=== PATIENT | male | born 1965 | race Caucasian/White ===

== ENCOUNTER 2023-09-17 10:29 | Emergency (ER) | payer OTHER, SELFPAY ==
[2023-09-17] VITALS (16 sets, daily range): BP systolic 142–159; BP diastolic 81–91; PULSE 62–77; RESP 12–16; TEMP 36.6–37.3; O2SAT 94–99; BMI 25.4
[2023-09-17 10:51] LABS: Appearance Urine Clear (Clear); Bilirubin Urine Negative (Negative); Blood Urine Trace-intact (Negative); Color Urine Yellow (Yellow); Glucose Urine Negative (Negative); Ketones Urine Negative (Negative); Leukocyte Esterase Urine Negative (Negative); Nitrite Urine Negative (Negative); Protein Urine Negative (Negative); Specific Gravity Urine 1.015 (1.000-1.030); Urobilinogen Urine 0.2 (0.2-1.0)
[2023-09-17 11:01] LABS: RBC Urine 0-2 (0-2); WBC Urine 0-2 (0-5)
--- NOTE | 2023-09-17 11:10 | CRLHL7_ITS ---
For Patients: As a result of the 21st Century Cures Act, medical imaging exams and procedure reports are released immediately into your electronic medical record. You may view this report before your referring provider. If you have questions, please contact your health care provider. INDICATION: .LEFT ABD AND FLANK PAIN TECHNIQUE: CT abdomen and pelvis without contrast. COMPARISON: None. FINDINGS: Lower chest: The visualized lower lungs are aerated. No pleural or pericardial effusion. ABDOMEN: Liver: Scattered hypodensities within the liver that are incompletely characterized on this exam. Gallbladder and biliary: Normal gallbladder without radiopaque stone. Normal caliber bile ducts. Spleen: Normal size and attenuation. Pancreas: The noncontrast pancreas is homogeneous in attenuation without peripancreatic inflammatory changes or ductal dilatation. Adrenal glands: Lobulated right adrenal mass with intrinsic areas cystic formation and associated exophytic cystic and nodular foci measuring to 7.9 bi 7.3 by 6.5 cm in AP, transverse, craniocaudal dimensions. Normal left adrenal gland. Kidneys and ureters: Normal attenuation. No radio-opaque calculi. No hydroureteronephrosis. GI tract: The stomach is relatively decompressed. Normal caliber small and large bowel loops. Normal appendix. Vascular structures: Normal caliber abdominal aorta. Lymph nodes: No lymphadenopathy in the abdomen or pelvis by size criteria. Peritoneum: No free air, free fluid, or focal drainable fluid collection. PELVIS: Genitourinary system: Normal urinary bladder. SKELETAL STRUCTURES AND SOFT TISSUES: No suspicious lytic or blastic lesions. IMPRESSION: 1. Lobulated right adrenal mass with intrinsic areas cystic formation and associated exophytic cystic and nodular foci measuring to 7.9 bi 7.3 by 6.5 cm. Leading differential considerations include a pheochromocytoma versus adrenal cortical carcinoma. Recommend further evaluations with GI consultation and dedicated adrenal protocol MRI with and without intravenous contrast. 2. Subcentimeter hypoattenuating foci in the liver are incompletely characterized on this exam. This can be further characterized on subsequent MRI. Please note that all CT scans at this facility use dose modulation, iterative reconstruction, and/or weight-based dosing when appropriate to reduce radiation dose to as low as reasonably achievable. Dictated by Cristian Cobos MD @ 09/17/2023 12:35:25 PM (Electronically Signed)
--- NOTE | 2023-09-17 11:10 | ED.ABDPAIN ---
HPI - Abdominal Pain General Chief Complaint: Abdominal Pain Stated Complaint: L side pain Time Seen by Provider: 09/17/23 11:03 History of Present Illness HPI narrative: This 57-year-old male comes in reporting left flank and abdominal pain that began about 6 days ago. He states that it has been rather constant but does fluctuate some in intensity. He does not report any nausea, vomiting, fevers, dysuria, or altered bowel function. He is otherwise in good health. Related Data Home Medications Medication Instructions Recorded Confirmed lansoprazole 30 mg capsule,delayed 30 mg PO QDAY 06/01/22 06/13/22 release (Prevacid) lisinopril 5 mg tablet 5 mg PO QDAY 06/01/22 06/13/22 cholecalciferol (vitamin D3) 50 2,000 unit PO DAILY 06/13/22 06/13/22 mcg (2,000 unit) capsule fluticasone propionate 50 1 spray intranasal QDAY PRN 06/13/22 06/13/22 mcg/actuation nasal spray,suspension loratadine 10 mg capsule 10 mg PO .Daily as needed PRN 06/13/22 06/13/22 olopatadine 0.2 % eye drops 2 drp ophthalmic (eye) .Daily as 06/13/22 06/13/22 needed PRN Previous Rx's Medication Instructions Recorded hydrocodone 5 mg-acetaminophen 325 1 tab PO Q4-6H PRN pain #20 tabs 09/17/23 mg tablet Allergies Allergy/AdvReac Type Severity Reaction Status Date / Time No Known Allergies Allergy Verified 06/13/22 13:42 Review of Systems Status of ROS Reports: 10 or more systems reviewed and unremarkable except as noted in History and below Narrative Constitutional: No fevers, no weight gain or loss. Eyes: No discharge. No vision changes. HENT: No congestion, no sore throat, no ear pain. Cardiovascular: No chest pain, no palpitations. Respiratory: No shortness of breath, no wheezes, no cough. Gastrointestinal: No vomiting, no diarrhea. Left-sided abdominal and flank pain as described above. Genitourinary: No dysuria, no hematuria. Musculoskeletal: Normal range of motion. Skin: No rashes, no pruritis. Neurological: No dizziness, weakness, sensory change, speech change. Endo/Heme/Allergies: No bruising or bleeding. No polydipsia. Pysch: no suicidality, no anxiety, no insomnia. All other systems reviewed and are negative. 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 ?M50.20 - Other cervical disc displacement, unspecified cervical region (ICD-10) Surgical History (Updated 06/13/22 @ 13:34 by Spring Croft ~ [facility], [facility]) History of vasectomy ?Z98.52 - Vasectomy status (ICD-10) History of umbilical hernia repair ?Z98.890 - Other specified postprocedural states (ICD-10) ?Z87.19 - Personal history of other diseases of the digestive system (ICD-10) Family History (Updated 06/13/22 @ 13:44 by Spring Croft ~ [facility], [facility]) Mother Cancer Diabetes Liver failure Maternal Grandmother Ovarian cancer Father Heart problem Cancer of kidney Maternal Grandfather Liver cancer Colon cancer Social History (Updated 06/13/22 @ 13:44 by Spring Croft ~ [facility], [facility]) Smoking Status: Never smoker Do you use any of these nicotine containing products: Other Nicotine containing products detail: occasional cigar Second hand tobacco smoke exposure: No How often do you have a drink containing alcohol: never AUDIT-C Alcohol total score: 0 Non-prescribed substance use: denies use Exam Narrative: Exam Narrative: Constitutional: Well-developed, well-nourished, no acute distress. HEENT: Normocephalic, atraumatic. Neck: Normal range of motion. Nontender. Supple. Heart: Regular. No murmurs. Normal rate. Intact distal pulses. Lungs: Clear to auscultation. No chest discomfort. No wheezes, rhonchi, or rales. Abdomen: Normal bowel sounds. No rebound tenderness. Pain is not worsened by palpating throughout his abdomen. Genitalia: Deferred. Back: No midline tenderness. Normal range of motion. Extremities: Normal range of motion. No injury. Skin: Intact. No rash. Warm. No erythema or pallor. Neurologic: No altered sensation. No weakness. Alert and oriented. Psychiatric: No suicidality. No anxiety or depression. No insomnia. Nursing notes and vitals signs are reviewed. Const: Vital Signs, click to edit/add: Vital Signs - 24 hr 09/17/23 10:39 09/17/23 16:23 09/17/23 20:00 Temperature 97.8 F 99.2 F Pulse Rate [Pulse Oximeter] 75 71 67 Respiratory Rate 12 Blood Pressure [Ri ght Upper Arm] 159/81 H 142/91 H 142/91 H Pulse Oximetry 99 97 96 Oxygen Delivery Me thod Room Air Room Air Course Vital Signs Vital signs: Initial Vital Signs Temperature 97.8 F 09/17/23 10:39 Temperature Source Temporal Artery Scan 09/17/23 10:39 Pulse Rate 75 09/17/23 10:39 Pulse Rhythm Regular 09/17/23 10:39 Respiratory Rate 12 09/17/23 10:39 Blood Pressure 159/81 H 09/17/23 10:39 Blood Pressure Mean 107 H 09/17/23 10:39 Blood Pressure Position Sitting 09/17/23 10:39 Pulse Oximetry 99 09/17/23 10:39 Oxygen Delivery Method Room Air 09/17/23 10:39 Vital Signs Temperature 97.8 F 09/17/23 10:39 Pulse Rate 75 09/17/23 10:39 Respiratory Rate 12 09/17/23 10:39 Blood Pressure 159/81 H 09/17/23 10:39 Pulse Oximetry 99 09/17/23 10:39 Oxygen Delivery Method Room Air 09/17/23 10:39 Temperature 99.2 F 09/17/23 16:23 Pulse Rate 67 09/17/23 20:00 Respiratory Rate 12 09/17/23 10:39 Blood Pressure 142/91 H 09/17/23 20:00 Pulse Oximetry 96 09/17/23 20:00 Oxygen Delivery Method Room Air 09/17/23 16:23 Medications Administered Medications: Discontinued Medications Generic Name Dose Route Start Last Admin Trade Name Freq PRN Reason Stop Dose Admin Hydromorphone HCl 0.5 mg 09/17/23 13:10 09/17/23 16:30 Hydromorphone 0.5 Mg/0.5 Ml Inj IVP 09/17/23 13:11 0.5 mg ONCE ONE Administration Hydromorphone HCl 0.5 mg 09/17/23 16:25 09/17/23 18:27 Hydromorphone 0.5 Mg/0.5 Ml Inj IVP 09/17/23 16:26 0.5 mg ONCE ONE Administration Ondansetron HCl 4 mg 09/17/23 13:10 09/17/23 16:30 Ondansetron 2 Mg/Ml Inj IVP 09/17/23 13:11 4 mg ONCE ONE Administration MDM - Abdominal Pain MDM Narrative Medical decision making narrative: This patient comes in with left flank pain and thinks that it might be a kidney stone. A CT scan of the abdomen pelvis is obtained which shows no sign of kidney stone however there is a mass of on the right adrenal gland. An MRI is indicated. The patient waited quite a while for this to occur but MRI imaging is were obtained and actually showed 2 masses above the right kidney. The more posterior 1 appears to be a benign adenoma where as the anterior 1 is possibly a pheochromocytoma. The patient's electrolytes and labs are all otherwise normal. He did receive a dose of Dilaudid intravenously for pain relief. The patient is okay to return home and received a prescription for tablets of Gr[place]. He would like to follow-up at the [facility] facility. Attempt was made to arrange a appointment with endocrinology there but we were unable to do so until day hours. A phone call will be made tomorrow to attempt to expedite an appointment for him. The phone number is [phone]. Lab Data Labs: Lab Results 09/17/23 09/17/23 Range/Units 13:05 Unknown WBC 5.69 (4.50-11.00) K/uL RBC 5.75 (4.30-5.90) m/uL Hgb 16.4 (13.5-17.5) gm/dL Hct 49.6 (37.0-53.0) % MCV 86 (80-100) fL MCH 29 (26-34) pg MCHC 33 (32-36) gm/dL RDW Coeff of Britni 12.6 (11.5-15.5) % Plt Count 214 (140-440) K/uL Neut % (Auto) 71.5 (42.0-72.0) % Lymph % (Auto) 18.1 L (20-44) % [place] % (Auto) 5.6 (0.0-11.0) % Eos % (Auto) 1.6 (0.0-7.0) % Baso % (Auto) 0.7 (0.0-3.0) % Neut # (Auto) 4.07 (1.7-7.0) K/uL Lymph # (Auto) 1.00 (0.90-2.90) K/uL [place] # (Auto) 0.30 (0.00-0.90) K/UL Eos # (Auto) 0.09 (0.00-0.50) K/uL Baso # (Auto) 0.04 (0.00-0.30) K/uL Abs Immat Gran (auto) 0.14 (0.00-0.30) K/uL Imm/Tot Granulo (auto) 2.5 % Sodium 142 (135-149) mmol/L Potassium 4.3 (3.6-5.1) mmol/L Chloride 103 (96-114) mmol/L Carbon Dioxide 30 (20-32) mmol/L Anion Gap 9 (7-15) mEq/L BUN 12 (7-30) mg/dL Creatinine 0.8 (0.5-1.5) mg/dL Estimated Creat Clear 121.30 Estimated GFR 105 ml/min Glucose 115 (60-115) mg/dL Calcium 9.2 (8.4-10.6) mg/dL Total Bilirubin 0.4 (0.1-1.5) mg/dL Direct Bilirubin 0.0 (0.0-0.5) mg/dL AST 39 H (12-35) U/L ALT 43 (4-50) U/L Alkaline Phosphatase 59 (40-150) U/L Total Protein 8.2 (6.0-8.3) g/dL Albumin 5.2 H (3.3-5.0) g/dL Urine Color Yellow (Yellow) Urine Appearance Clear (Clear) Urine pH 6.0 (5.0-8.5) Ur Specific [place] 1.015 (1.000-1.030) Urine Protein Negative (Negative) Urine Glucose (UA) Negative (Negative) Urine Ketones Negative (Negative) Urine Blood Trace-intact A (Negative) Urine Nitrite Negative (Negative) Urine Bilirubin Negative (Negative) Urine Urobilinogen 0.2 (0.2-1.0) Ur Leukocyte Esterase Negative (Negative) Urine RBC 0-2 (0-2) Urine WBC 0-2 (0-5) Ur Squamous Epith Cells None (None-Few) Urine Bacteria None (None) Imaging Data MR Abdomen: Radiologist's impression: Impression: There are 2 right adrenal masses. The posterior mass measures 3.7 x 3.5 x 3.2 cm. This lesion is well-circumscribed with fairly minimal enhancement, no restricted diffusion, and significant signal dropout on out of phase imaging, consistent with a benign adenoma. The other more anterior lesion is more complex and measures 4.6 x 5.9 x 5.4 cm. This lesion is predominantly solid with a few small discrete areas of cystic change. The solid portion of the mass is T2 and T1 intermediate with no signal dropout on out of phase imaging. This is robust late enhancing and restricts diffusion. Favor pheochromocytoma. Of note, both of these lesions were present but much smaller on an MRI from 2011. There are several hepatic and renal simple cysts. No upper abdominal adenopathy or ascites. Discharge Plan Discharge Clinical Impression: Pheochromocytoma Patient Disposition: Home w/ Parent or Adult Condition: Unchanged Additional Instructions: Follow-up with endocrinology for ongoing management. An attempt at make an appointment will be made tomorrow. Take pain medicine as needed and directed. Return if worsening. Prescriptions: New hydrocodone-acetaminophen 5-325 mg tablet 1 tab PO Q4-6H PRN (Reason: pain) Qty: 20 0RF No Action lansoprazole [Prevacid] 30 mg capsule,delayed release(DR/EC) 30 mg PO QDAY lisinopril 5 mg tablet 5 mg PO QDAY loratadine 10 mg capsule 10 mg PO .Daily as needed PRN cholecalciferol (vitamin D3) 50 mcg (2,000 unit) capsule 2,000 unit PO DAILY olopatadine 0.2 % drops 2 drp ophthalmic (eye) .Daily as needed PRN fluticasone propionate 50 mcg/actuation spray,suspension 1 spray intranasal QDAY PRN Rx Instructions: administer into each nostril Follow Up/Referrals: Bruce Flores MD [Primary Care Provider] - Stand Alone Forms: [place] Info Instructions
--- NOTE | 2023-09-17 12:54 | CRLHL7_ITS ---
For Patients: As a result of the Century Cures Act, medical imaging exams and procedure reports are released immediately into your electronic medical record. You may view this report before your referring provider. If you have questions, please contact your health care provider. INDICATION: Right adrenal mass. COMPARISON: CT scan of the abdomen pelvis dated 17 September 2023. Abdominal MRI dated 22 Feb 2011. TECHNIQUE: Abdominal MRI with T1 in- and out of phase, T2, diffusion weighted, and progressively delayed post-contrast images. Intravenous gadolinium administered. FINDINGS: No fatty infiltration of the liver. A few scattered small cysts in the liver. No other focal abnormalities identified in the visualized portions of the liver, spleen, pancreas, and left adrenal gland. A few very small cysts in the kidneys. The kidneys are otherwise unremarkable. No hydronephrosis. 5.5 x 5.1 x 5.1 cm well-circumscribed complex enhancing right adrenal mass with an adjacent 3.2 cm mass containing significant intravoxel fat. No adenopathy. Impression : 1. 5.5 cm well-circumscribed complex enhancing right adrenal mass is indeterminate but may represent a neoplastic process. The mass abuts but does not appear to invade the liver and right kidney. Recommend general surgery consultation. 2. 3.2 cm right adrenal mass meets imaging criteria for an adrenal adenoma. 3. No metastatic disease identified in the abdomen. Dictated by Morales Barkley MD @ 09/19/2023 2:26:05 PM (Electronically Signed)
[2023-09-17 13:22] LABS: Basophils Absolute Auto 0.04 K/uL (0.00-0.30); Basophils Percent Auto 0.7 % (0.0-3.0); Eosinophils Absolute Auto 0.09 K/uL (0.00-0.50); Eosinophils Percent Auto 1.6 % (0.0-7.0); Hematocrit 49.6 % (37.0-53.0); Hemoglobin* 16.4 gm/dL (13.5-17.5); Immature Granulocytes Abs Auto 0.14 K/uL (0.00-0.30); Immature Granulocytes Pct Auto 2.5 %; Lymphocytes Percent Auto 18.1 % (20-44); Mean Corpuscular HGB Conc 33 gm/dL (32-36); Mean Corpuscular Hemoglobin 29 pg (26-34); Mean Corpuscular Volume 86 fL (80-100); Monocytes Percent Auto 5.6 % (0.0-11.0); Neutrophils Absolute Auto 4.07 K/uL (1.7-7.0); Neutrophils Percent Auto 71.5 % (42.0-72.0); Platelet Count* 214 K/uL (140-440); RDW Coefficient of Variation % 12.6 % (11.5-15.5); Red Blood Count 5.75 m/uL (4.30-5.90); White Blood Count* 5.69 K/uL (4.50-11.00)
[2023-09-17 13:39] LABS: Albumin* 5.2 g/dL (3.3-5.0); Chloride* 103 mmol/L (96-114)
[2023-09-17 13:40] LABS: Potassium* 4.3 mmol/L (3.6-5.1); Sodium* 142 mmol/L (135-149)
[2023-09-17 13:42] LABS: Alkaline Phosphatase* 59 U/L (40-150); Anion Gap 9 mEq/L (7-15); Aspartate Amino Transferase* 39 U/L (12-35); Bilirubin Total* 0.4 mg/dL (0.1-1.5); Blood Urea Nitrogen* 12 mg/dL (7-30); Carbon Dioxide* 30 mmol/L (20-32); Creatinine* 0.8 mg/dL (0.5-1.5); Estimated Glomerular Filt Rate 105 ml/min; Total Protein* 8.2 g/dL (6.0-8.3)
[2023-09-17 13:43] LABS: Alanine Aminotransferase* 43 U/L (4-50); Calcium* 9.2 mg/dL (8.4-10.6); Glucose* 115 mg/dL (60-115)
[2023-09-17 13:44] LABS: Slide Review Reflex No
[2023-09-17] MEDS: ONDANSETRON 2 MG/ML inj 4 MG IVP (16:30)
[2023-09-17] MEDS: HYDROmorphone 0.5 mg/0.5 ml inj IVP ×2 (16:30→18:27)
--- NOTE | 2023-09-17 18:50 | ED.NURSE ---
Pt to MRI.
--- NOTE | 2023-09-17 19:36 | ED.NURSE ---
MRI complete, Pt back in room. Water provided. Erick offered, okay with .
--- NOTE | 2023-09-17 20:17 | ED.NURSE ---
Report given to REBECCA Witt.
--- NOTE | 2023-09-17 21:06 | ED.NURSE ---
MD Request to set up appt with [facility] for pheochromocytoma, [facility] states to have physician call (physician referral line) to make appointment during daytime hours tomorrow [phone]. MD updated stating he will pass on to daytime physician and this RN will pass on to dayshift RN to follow up.
== END 2023-09-17 21:27 | disposition home or self-care (01) ==
PROVIDERS: Emergency Provider Emergency Medicine Emergency Medical Services; PCP Family Medicine
DX: D35.00 Benign neoplasm of unspecified adrenal gland (principal)
CPT/HCPCS: 36415; 74176; 74183; 80048; 80076; 81001; 85025; 96374; 96375; 96376; 99284; 99285; A9575; J1170; J2405

== ENCOUNTER 2025-05-06 10:55 | Outpatient (CLI) | payer OTHER, SELFPAY ==
--- NOTE | 2025-05-06 11:15 | CRLHL7_ITS ---
For Patients: As a result of the Century Cures Act, medical imaging exams and procedure reports are released immediately into your electronic medical record. You may view this report before your referring provider. If you have questions, please contact your health care provider. Indication: Right hip pain. Comparison: 04/30/2025 Procedure : Informed consent was obtained. The site was marked. Time-out was performed. The skin of the right hip was cleansed with ChloraPrep. A sterile drape was placed. 8 cc of 1 percent lidocaine was administered for superficial anesthesia. Subsequently a 22 gauge spinal needle was introduced into the right hip joint under intermittent fluoroscopic guidance. 7 cc of 1 percent lidocaine and 2 cc of 40 milligram/cc Depo-Medrol then placed into the right hip joint. The needle was removed and hemostasis achieved with direct pressure. A dressing was placed. The patient tolerated the procedure well without immediate complication. Total fluoroscopy time 10 seconds. Impression: Successful fluoroscopically guided right hip with 80 milligrams of Depo-Medrol. Dictated by Cristian Coates MD @ 05/06/2025 12:37:12 PM (Electronically Signed)
== END 2025-05-06 10:56 | disposition home or self-care (01) ==
LOC: RAD 10:56
PROVIDERS: PCP Family Medicine; Visit Provider Family Medicine
DX: M25.551 Pain in right hip (principal); M16.11 Unilateral primary osteoarthritis, right hip
CPT/HCPCS: 20610; 77002; Q9966

== ENCOUNTER 2025-05-08 07:28 | Outpatient (RCR) | payer OTHER, SELFPAY | END 2025-09-04 08:40 | disposition home or self-care (01) | PROVIDERS: PCP Family Medicine; Visit Provider Family Medicine | DX: S39.012D Strain of muscle, fascia and tendon of lower back, subsequent encounter (principal); M25.551 Pain in right hip; M79.604 Pain in right leg; M16.11 Unilateral primary osteoarthritis, right hip; Z51.89 Encounter for other specified aftercare | CPT/HCPCS: 97110; 97162 ==